=== PATIENT | male | born 1970 | race Caucasian/White ===

== ENCOUNTER 2022-05-08 06:11 | Inpatient (IN) ==
--- NOTE | 2022-04-22 09:19 | PAT Medication Instructions ---
Medication Instructions Date of Service April 22, 2022 Home Medications gabapentin 300 mg capsule 300 mg PO TID ibuprofen 800 mg tablet 800 mg PO BID ASK your surgeon for instructions ibuprofen 800 mg tablet 800 mg PO BID Take morning of surgery With a small sip of water, OTHERWISE NOTHING TO EAT OR DRINK AFTER MIDNIGHT: gabapentin 300 mg capsule 300 mg PO TID Take evening before surgery gabapentin 300 mg capsule 300 mg PO TID Other Notes If you have any questions please call us at [phone] or [phone] or [phone] or [phone]
--- NOTE | 2022-04-24 13:23 | Anesthesiology Consultation ---
Date of Service April 24, 2022 Assessment & Plan (1) Encounter for pre-operative examination: - COVID screening: Per assessment on 04/24: No known COVID-19 positive contacts or current COVID-19 related symptoms. Travel screen negative. Patient vaccinated. Surgeon arranging preop COVID testing. Awaiting results. - PCP office visit (04/03/22): "due to hx DVT/PE he will need post op DVT ppx.. recommend Eliquis 2.5 mg twice daily x 28 days with first dose POD #1 (24 hours later).. pat can be considered low risk for outpatient spine surgery on 05/08/2022 based on [facility] perioperative risk assessment." Chart Review Chart Review: Acceptable Risk for Surgery and Patient seen in Pre Admission Testing Teaching & Discussion Pre-Anesthesia Teaching/Discussion Notes: Instructed NPO after midnight before surgery,except medications with 15 cc of water. Medication instructions provided according to the PAT guidelines. History Surgery Operation Date: 05/08/22 07:45 Proposed Procedures p L4-S1 Decompression and Fusion, Spinal Cord Monitoring - Ramiro Houston DO Height/Weight Height: 5 ft 8 in Weight: 75.3 kg Allergies Allergy/AdvReac Type Severity Reaction Status Date / Time No Known Allergies Allergy Verified 04/21/22 09:48 Medications Home Medications Medication Instructions Recorded Confirmed Last Taken gabapentin 300 mg capsule 300 mg PO TID 04/21/22 04/21/22 Unknown ibuprofen 800 mg tablet 800 mg PO BID 04/21/22 04/21/22 Unknown Past Medical History Medical History Diverticular disease History of COVID-19 Dx 02/2021 > fever, fatigue, body aches, chills, brain fog, loss of taste/smell, + PE > resolved, no current issues History of kidney stones History of pulmonary embolism 02/2021 (while hospitalized with Covid) > previously on Eliquis HLD (hyperlipidemia) no meds Spinal stenosis Exercise / Class Metabolic Activity II 4-5 Yardwork/Stairs/Walk up hill Past Family History Family History Other No family history of adverse response to anesthesia Past Surgical History Surgical History History of colonoscopy History of esophagogastroduodenoscopy (EGD) History of removal of cyst History of wisdom tooth extraction Past Anesthesia History No Hx of Anesthesia Complications and No Family Hx of Anesthesia Complications History of PONV No Hx of PONV and No Hx of Motion Sickness Social History Smoking Status: Never smoker Do You Dip or Chew Tobacco: No Hx Alcohol Use: Yes Alcohol type: beer alcohol intake frequency: 0-2 drinks per day (1-2 beers/day) Hx Substance Use: No substance use type: does not use Review of Systems Chronic, dry cough upon awakening x years felt r/t allergies. Patient denies chest pain, shortness of breath, dyspnea on exertion, fever, chills, wheezing, palpitations. Physical Exam Vital Signs VITALS BP 151/91 P 83 TEMP 98.4 SP02 97%RA RESP 16 PHYSICAL Full cervical extension range of motion. Full TMJ range of motion. TMD 3.5 finger breaths Mallampati Score 3 Dentition: intact, root canal repair on molar Lungs: clear throughout to auscultation Cardiac: regular rate and rhythm, no murmurs noted Spine: normal Carotid arteries: negative bruit Extremities: no edema Lab Results Anesthesia Preop Results Results Anesthesia Widget: WBC 7.02 K/uL (4.8-10.8) 04/24/22 Hgb 14.9 g/dL (14.0-18.0) 04/24/22 Hct 43.3 % (42-52) 04/24/22 Plt 238 K/uL (130-400) 04/24/22 Na 141 mmol/L (136-145) 04/24/22 K 3.5 mmol/L (3.5-5.1) 04/24/22 Cl 106 mmol/L (98-107) 04/24/22 CO2 27 mmol/L (21-32) 04/24/22 BUN 10 mg/dl (6-23) 04/24/22 Creat 0.90 mg/dl (0.6-1.4) 04/24/22 Glucose Level 128 mg/dl (70-99(Fasting)) H 04/24/22 PT 10.2 Seconds (9.0-12.0) 04/24/22 PTT 28.1 Seconds (21.0-31.0) 04/24/22 INR 1.0 (0.9-1.1) 04/24/22 Urine Color Yellow 04/24/22 Urine Appearance Clear (Clear) 04/24/22 Urine pH 6.0 (4.5-7.5) 04/24/22 Urine Specific [place] 1.009 (1.000-1.030) 04/24/22 Urine Protein Negative (Negative) 04/24/22 Urine Glucose (UA) Negative (Negative) 04/24/22 Urine Ketones Negative (Negative) 04/24/22 Urine Blood Negative (Negative) 04/24/22 Urine Nitrite Negative (Negative) 04/24/22 Urine Bilirubin Negative (Negative) 04/24/22 Urine Urobilinogen Negative (Negative) 04/24/22 Urine Leukocyte Esterase Negative (Negative) 04/24/22 Blood Type O Negative 04/24/22 Antibody Screen NEGATIVE 04/24/22 Testing Electrocardiogram Date: 04/24/22 NSR at 72bpm. iRBBB. Chest X-Ray Date: 04/24/22 Findings: + NAD Echocardiogram Date: 12/05/21 EF 55-60%. No regional motion abnormality. Mild MV thickening. Trivial TR. Normal PAP.
[~2022-05-08 06:11] MED LIST: ACETAMINOPHEN 500 MG TAB PO SCH; CeleBREX 200 MG CAP PO SCH; GABAPENTIN 900 MG DOSE PO SCH; LR 15ML/HR IV SCH; ceFAZolin 2000MG 2,000 MG/15 ML SYR IV SCH
[2022-05-08] MEDS ORDERED: BUPIVACAINE/EPINEPHRINE 0.25% 1:200,000 30 ML VIAL ONE (06:59)
[2022-05-08] MEDS ORDERED: ceFAZolin 330 MG/ML 1 GM VIAL ONE (06:59)
[2022-05-08] MEDS ORDERED: MIDAZOLAM HCL 1 MG/ML 2ML VIAL ONE (07:16)
[2022-05-08] MEDS ORDERED: PROPOFOL IV EMULSION 10 MG/ML 20 ML VIAL IV ONE (07:16)
[2022-05-08] MEDS ORDERED: LIDOCAINE 2% 2 ML VIAL/AMP(20MG/ML) INFIL ONE (07:16)
[2022-05-08] MEDS ORDERED: ROCURONIUM BROMIDE 10 MG/ML 5 ML VIAL IV ONE (07:16)
[2022-05-08] MEDS ORDERED: fentaNYL citrate 100 MCG/2 ML VIAL ONE (07:16)
[2022-05-08] MEDS ORDERED: ATROPINE SULFATE 0.1 MG/ML 10ML SYR IV PRN (07:20)
[2022-05-08] MEDS ORDERED: ONDANSETRON INJ 2 MG/ML 2 ML VIAL IV PRN ×2 (07:20→13:31)
[2022-05-08] MEDS ORDERED: ePHEDrine sulfate 50 MG/ML AMP IV PRN (07:20)
[2022-05-08] MEDS ORDERED: ONDANSETRON INJ 2 MG/ML 2 ML VIAL ONE (07:25)
--- NOTE | 2022-05-08 07:27 | History & Physical Bridge Note ---
Date of Service May 08, 2022 History & Physical Bridge Note I have examined the patient, reviewed the History & Physical and in the interval since the performance of the History & Physical I have noted the following changes of clinical significance: no changes noted
--- NOTE | 2022-05-08 07:28 | History & Physical Report ---
Date of Service May 08, 2022 Assessment & Plan (1) Neurogenic claudication due to lumbar spinal stenosis: Plan: L4-S1 decompression and fusion History of Present Illness Chief Complaint: Back and leg pain Primary Care Provider: Deepak Norton This is a 51-year-old male who presents with chronic persistent back and leg pain after failing course of nonoperative care is here for surgical invention. Allergies Allergy/AdvReac Type Severity Reaction Status Date / Time No Known Allergies Allergy Verified 05/08/22 06:26 Home Medications Medication Instructions Recorded Confirmed Type gabapentin 300 mg capsule 300 mg PO TID 04/21/22 05/08/22 History ibuprofen 800 mg tablet 800 mg PO BID 04/21/22 05/08/22 History Past Med/Surg History Medical History Diverticular disease History of COVID-19 Dx 02/2021 > fever, fatigue, body aches, chills, brain fog, loss of taste/smell, + PE > resolved, no current issues History of kidney stones History of pulmonary embolism 02/2021 (while hospitalized with Covid) > previously on Eliquis HLD (hyperlipidemia) no meds Spinal stenosis Surgical History History of colonoscopy History of esophagogastroduodenoscopy (EGD) History of removal of cyst History of wisdom tooth extraction Family History Other No family history of adverse response to anesthesia Social History Smoking Status: Never smoker Second Hand Exposure: Yes (as a child); Do You Dip or Chew Tobacco: No; Hx Alcohol Use: Yes Alcohol type: beer Hx Substance Use: No Preferred Language: Thai Communication Ability: Effective Assistant Case Manager Required: No Beliefs That Will Affect Care: None Current Living Situation: Spouse Feels Safe at Home: Yes Safety Concerns: Feels Safe At This Time Assistive Devices: Glasses Physical Exam Physical Exam: Patient is alert and oriented Heart regular in rhythm Lungs clear Results & Data Results & Data ([facility]) Vital Signs (Past 12 Hours) Vital Signs Temp Pulse Resp BP Pulse Ox 05/08/22 06:28 36.9 C 77 20 136/94 98
[2022-05-08] MEDS ORDERED: DEXAMETHASONE SOD INJ 4 MG/ML VIAL ONE (07:31)
[2022-05-08] MEDS ORDERED: FLOSEAL HEMOSTATIC MATRIX 10ML TOP ONE (08:23)
[2022-05-08] MEDS ORDERED: GLYCOPYRROLATE 0.2 MG/ML VIAL ONE (09:24)
[2022-05-08] MEDS ORDERED: NEOSTIGMINE METHYLSULFATE 1 MG/ML 10ML VIAL ONE (09:24)
--- NOTE | 2022-05-08 09:57 | Operative Report ---
Post Operative Report Pre & Post Diagnosis Operation Date: 05/08/22 07:45 Pre-Op Diagnosis: Radiculopathy, Lumbar Region Spondylolisthesis L5-S1 Lumbar disc herniation L4-5 Post-Op Diagnosis: Same I identified the patient and participated in the time-out.: Yes Procedure Operation Date: 05/08/22 07:45 Actual Procedures #1 lumbar decompression with bilateral medial facetectomies and foraminotomies L3-4, L4-5 and L5-S1. #2 posterior spinal fusion L4-5 L5-S1. #3 placement posterior instrumentation L4-5 L5-S1. #4 interbody fusion L4 for L5 L5-S1. #5 placement of 13 x 26 mm spiral cage at L4-5 and 11 x 26 mm at L5-S1. #6 placement locally harvested morselized autograft in the posterior gutters. #7 placement of I factor combined with V toss in interbody space and posterior lateral gutters. Surgeon Ramiro Houston, Stencil Cutter Machine Jeovanny Dupree Estimated Blood Loss 150 Findings Consistent with Post-Op Diagnosis Specimens None Indications This is a 51-year-old male who presents with the above-mentioned diagnosis after failing since course of nonoperative care is here for surgical invention. Description of Procedure Patient was met with identified informed consent obtained. Patient was then taken to the operative suite underwent ablation placed in a prone position the [place] table top Wolf frame. All bony prominences well-padded eyes inspected to ensure no external pressure placed upon them. This point the lumbar spine was prepped and draped in normal sterile fashion. Sharp dissection with the assistance of Bovie cautery was performed down to and exposing the lamina and transverse processes of L4-L5 and sacral ala bilaterally. Obvious bilateral p ars defect at L5 was noted. A complete laminectomy L5 L4 and partial laminectomy L3 was performed including medial facetectomies and foraminotomies bilaterally to f address all neural compression. Discrimination L4-5 on the left was identified and the fragments were removed. Pedicle screws were then placed in L4-L5 and S1 levels bilaterally with assistance of fluoroscopy and appropriate sized rip contoured and placed. By way of entrance foraminal approach and left complete discectomy of L5-S1 was performed endplates curetted to subcortical bleeding bone and 11 x 26 mm spiral cage with I factor tapped in position. Then proceeded to L4-L5 and again by way of transforaminal approach and left pleat discectomy performed endplates curetted to subcortically bone and a 13 x 26 mm spiral cage filled I factor tapped in position. The rods then locked in final position bilaterally. The transverse processes of L 4 L5 and sacral ala burred to subcortical being bone. I factor combined with V toss and locally harvested morselized autograft was then placed in the posterior gutters. 15 round ROSEY drain inserted. The incision was then closed with 1 Vicryl the fascia 2-0 Vicryl subcutaneously and 4 Monocryl for final skin closure. Steri- Strip sterile dressings placed. Patient waken taken PACU stable condition. Please note spinal cord monitoring was utilized at the procedure no changes n oted. Lastly Jeovanny Dupree was present out the entire procedure involved the patient positioning complex portions of the surgery and fascial closure. I attest to the content of the Intraoperative Record and any orders documented therein. Any exceptions are noted below.
--- NOTE | 2022-05-08 10:01 | Fluoroscopy Report ---
FL lumbar spine 2-3V CLINICAL HISTORY: L4-S1 DECOMPRESSION AND FUSION TECHNIQUE: 2 views were obtained with the C-arm in the OR with the above procedure. Total fluoroscopy time was 33.9 seconds. Total skin dose was 24.3 mGy. Comparison: None available at the time of this dictation. FINDINGS/IMPRESSION: Intraoperative images were obtained of lumbar spine discectomy and fusion. Please correlate with intraoperative fluoroscopy and operative report. ACT 112: Negative or not required by law. Electronically signed by: Gordon Russo M.D. 05/08/2022 10:00 AM
[2022-05-08] MEDS: fentaNYL citrate 100 MCG/2 ML VIAL IV PRN ×4 (10:37→10:56)
--- NOTE | 2022-05-08 11:25 | Anesthesiology Progress Note ---
Date of Service May 08, 2022 Anesthesia Post Procedure Vital Signs Vital Signs: Temp Pulse Pulse Resp BP Pulse Ox 05/08/22 11:15 64 12 127/78 100 05/08/22 11:05 62 12 128/77 93 05/08/22 10:55 64 12 120/79 99 05/08/22 10:45 62 12 118/79 93 05/08/22 10:35 59 L 16 100/58 L 100 05/08/22 10:25 61 14 96/53 L 100 05/08/22 10:16 97.0 F L 62 16 121/83 100 05/08/22 06:28 98.4 F 77 20 136/94 98 Pain Intensity Bilateral Lower Back: Pain Intensity: 4 Transfer of Care Handoff Completed per policy Notes Mental Status: alert / awake / arousable and participated in evaluation Patient Amnestic to Procedure: Yes Nausea / Vomiting: adequately controlled Pain: adequately controlled Airway Patency, RR, SpO2: stable & adequate BP & HR: stable & adequate Hydration State: stable & adequate Anesthetic Complications: no major complications apparent and Pt Satisfied with anesthetic care
[2022-05-08] MEDS: HYDROmorphone INJ 2 MG/ML SYR/VIAL IV PRN ×2 (11:41→11:46)
[2022-05-08] MEDS ORDERED: ONDANSETRON 4 MG OD TAB PO PRN (13:31)
[2022-05-08] MEDS ORDERED: METOCLOPRAMIDE HCL INJ 5 MG/ML 2 ML VIAL IV PRN (13:31)
[2022-05-08] MEDS ORDERED: HYDROmorphone INJ 0.5 MG/0.5 ML SYR IV PRN (13:31)
[2022-05-08] MEDS ORDERED: PROMETHAZINE HCL 12.5 MG in SODIUM CHLORIDE 0.9% 50 ML IV PRN (13:31)
[2022-05-08] MEDS ORDERED: DO NOT ADMINISTER FLU VACCINE PRN (13:31)
[2022-05-08] MEDS ORDERED: hydrOXYzine HCl 25 MG TAB PO PRN (13:31)
[2022-05-08] MEDS ORDERED: LORazepam 0.5 MG in SYRINGE 0.25 ML IV PRN (13:31)
[2022-05-08] MEDS ORDERED: DO NOT ADMINISTER PNEUMOCOCCAL VACCINE PRN (13:31)
[2022-05-08] MEDS ORDERED: ACETAMINOPHEN 500 MG TAB PO PRN (13:31)
[2022-05-08] MEDS ORDERED: LORazepam 0.5 MG TAB PO PRN (13:31)
[2022-05-08] MEDS ORDERED: ACETAMINOPHEN 1,000 MG/100 ML VIAL IV PRN (13:31)
[2022-05-08] MEDS ORDERED: bisacodyL 10 MG SUPP PR PRN (13:31)
[2022-05-08] MEDS ORDERED: SOD PHOSPHATE/SOD BIPHOSPHATE ENEMA 132 ML BTL PR PRN (13:31)
[2022-05-08] MEDS ORDERED: FAMOTIDINE 20 MG TAB PO PRN (13:31)
[2022-05-08] MEDS ORDERED: ALUMINUM/MAGNESIUM SUSP 30 ML UDC PO PRN (13:31)
[2022-05-08] MEDS ORDERED: diphenhydrAMINE Capsule 25 MG CAP PO PRN (13:31)
[2022-05-08] MEDS ORDERED: MAGNESIUM HYDROXIDE SUSP 30 ML UDC PO PRN (13:31)
[2022-05-08] MEDS ORDERED: HYDROmorphone INJ 1 MG/ML SYRINGE IV PRN (13:31)
[2022-05-08] MEDS ORDERED: NALOXONE HCL 0.4 MG/1 ML VIAL/CARP IV PRN (13:31)
[2022-05-08] MEDS: LACTATED RINGER'S 1,000 ML IV SCH ×2 (16:05→22:01)
[2022-05-08] MEDS: oxyCODONE HCL IR 5 MG TAB (IMMEDIATE RELEASE) PO PRN (16:36)
[2022-05-08] MEDS: ceFAZolin 2000MG 2,000 MG/15 ML SYR IV SCH (17:41)
[2022-05-08] MEDS: traMADol HCL 50 MG TABLET PO PRN (19:55)
[2022-05-08] MEDS: GABAPENTIN 300 MG CAP PO SCH (21:09)
[2022-05-08] MEDS: DOCUSATE SODIUM/SENNA 50/8.6MG TAB PO SCH (21:09)
[2022-05-09] MEDS: ceFAZolin 2000MG 2,000 MG/15 ML SYR IV SCH (00:34)
[2022-05-09] MEDS: LACTATED RINGER'S 1,000 ML IV SCH (04:46)
[2022-05-09] MEDS: oxyCODONE HCL IR 5 MG TAB (IMMEDIATE RELEASE) PO PRN (06:08)
[2022-05-09] MEDS: POLYETHYLENE (MIRALAX) 17 GM PACK PO SCH ×4 (06:09→23:45)
[2022-05-09 07:20] LABS: Basophils # (auto) 0.01 K/uL (0-0.2); Basophils % (auto) 0.1 %; Eosinophils # (auto) 0.05 K/uL (0-0.5); Eosinophils % (auto) 0.4 %; Hematocrit (blood only) 37.6 % (42-52); Immature Granulocytes # (auto) 0.03 K/uL (0.00-0.02); Immature Granulocytes % (auto) 0.2 %; Lymphocytes # (auto) 1.93 K/uL (1.2-3.4); Lymphocytes % (auto) 13.9 %; Mean Corpuscular Hemoglobin 31.7 pg (25-34); Mean Corpuscular Hgb Conc 34.6 g/dL (32-36); Mean Corpuscular Volume 91.7 fL (80-100); Mean Platelet Volume 11.2 fL (7.4-10.4); Monocytes % (auto) 8.6 %; Neutrophils # (auto) 10.71 K/uL (1.4-6.5); Neutrophils % (auto) 76.8 %; Platelet Count 216 K/uL (130-400); RDW Coefficient of Variation 13.2 % (11.5-14.5); RDW Standard Deviation 43.8 fL (36.4-46.3); White Blood Count 13.93 K/uL (4.8-10.8)
[2022-05-09] MEDS: GABAPENTIN 300 MG CAP PO SCH ×3 (08:06→20:45)
[2022-05-09] MEDS: dexAMETHasone 6 MG in SYRINGE 0 ML IV SCH (08:06)
[2022-05-09 08:18] LABS: Anion Gap 6 (3-11); BUN Creatinine Ratio 12.6 (10-20); Blood Urea Nitrogen 12 mg/dl (6-23); Carbon Dioxide 26 mmol/L (21-32); Chloride 106 mmol/L (98-107); Est GFR (African American) 106.2 ml/min; Est GFR (Non-African American) 91.7 ml/min; Glucose 129 mg/dl (70-99(Fasting)); Sodium 138 mmol/L (136-145)
--- NOTE | 2022-05-09 09:46 | Orthopedic Progress Note ---
Date of Service May 09, 2022 Assessment & Plan (1) Neurogenic claudication due to lumbar spinal stenosis: Plan: This time initiate physical therapy monitor his ROSEY output hopefully discharge home Wednesday or Wednesday. I will place him on aspirin daily he is he has a history of blood clots secondary to COVID a year ago. Admission and Anticipated Discharge Date Admission Date: May 08, 2022 Subjective Patient back pain is controlled. Leg pain is improved. He gets occasional numbness and tingling but this is tolerable. Physical Exam Physical Exam: On exam patient is in a chair at the bedside. Skin strength testing. Appears comfortable. Results & Data ([facility]) Vital Signs (Past 12 Hours) Vital Signs Temp Pulse Resp BP Pulse Ox 05/09/22 07:48 36.6 C 70 16 108/69 100 05/09/22 03:00 36.5 C 72 16 111/68 100 05/08/22 22:24 36.6 C 80 16 120/65 96
[2022-05-09] MEDS: traMADol HCL 50 MG TABLET PO PRN ×2 (10:41→20:01)
[2022-05-09] MEDS: DOCUSATE SODIUM/SENNA 50/8.6MG TAB PO SCH (20:45)
[2022-05-10] MEDS: traMADol HCL 50 MG TABLET PO PRN (05:53)
[2022-05-10] MEDS: POLYETHYLENE (MIRALAX) 17 GM PACK PO SCH (05:54)
[2022-05-10] MEDS: dexAMETHasone 6 MG in SYRINGE 0 ML IV SCH (07:47)
[2022-05-10] MEDS: GABAPENTIN 300 MG CAP PO SCH ×3 (07:47→20:40)
[2022-05-10] MEDS: ASPIRIN 325 MG ECTAB PO SCH (07:47)
--- NOTE | 2022-05-10 09:19 | Orthopedic Progress Note ---
Date of Service May 10, 2022 Assessment & Plan (1) Neurogenic claudication due to lumbar spinal stenosis: Plan: Patient is postoperative day 2 lumbar decompression instrumented fusion. He is doing well. We will continue with physical therapy today. Maintain ROSEY drain. Continue with pain control. DVT prophylaxis is in the form of teds and SCDs. Continue with bowel regimen. Anticipate discharge home tomorrow Admission and Anticipated Discharge Date Admission Date: May 08, 2022 Ramila Aguilar is postoperative day 2 lumbar decompression instrumented fusion L4-S1. He is doing well. Had a bit more lumbar discomfort today. Leg symptoms greatly improved. He has had a bowel movement. ROSEY drain output last shift was 20 cc. Yesterday in physical therapy ambling roughly 275 feet. Review of Systems Review of Systems: All systems reviewed & are unremarkable except as noted in HPI & below Physical Exam Physical Exam: Alert and oriented x3 Sitting in a chair in no acute distress Lumbar dressing is clean dry and intact and functioning ROSEY drain Calf soft nontender bilaterally Strength is 5 5 bilateral lower extremities Results & Data ([facility]) Vital Signs (Past 12 Hours) Vital Signs Temp Pulse Resp BP Pulse Ox 05/10/22 07:07 36.6 C 73 18 124/81 100 05/09/22 22:23 36.6 C 77 18 128/79 100
[2022-05-10] MEDS: oxyCODONE HCL IR 5 MG TAB (IMMEDIATE RELEASE) PO PRN ×2 (13:30→20:40)
[2022-05-10] MEDS: DOCUSATE SODIUM/SENNA 50/8.6MG TAB PO SCH (20:40)
[2022-05-11] MEDS: ASPIRIN 325 MG ECTAB PO SCH (08:14)
[2022-05-11] MEDS: GABAPENTIN 300 MG CAP PO SCH ×2 (08:14→15:09)
[2022-05-11] MEDS: oxyCODONE HCL IR 5 MG TAB (IMMEDIATE RELEASE) PO PRN ×2 (09:50→15:10)
[2022-05-11] MEDS: dexAMETHasone 6 MG in SYRINGE 0 ML IV SCH (09:51)
--- NOTE | 2022-05-11 10:08 | Discharge Summary ---
Date of Service May 11, 2022 Admission HPI Per Admitting Provider This is a 51-year-old male who presents with chronic persistent back and leg pain after failing course of nonoperative care is here for surgical invention. Principal Diagnosis Lumbar spinal stenosis with radiculopathy Discharge Data Allergies Allergy/AdvReac Type Severity Reaction Status Date / Time No Known Allergies Allergy Verified 05/08/22 06:26 Procedures Performed Operation Date: 05/08/22 07:45 Actual Procedures p L4-S1 Decompression and Fusion, Spinal Cord Monitoring - Ramiro Houston DO Ordered Studies 05/08/22 07:45 [place] lumbar spine 2-3V Routine Hospital Course (1) Neurogenic claudication due to lumbar spinal stenosis: Patient with lumbar decompression fusion tolerated as well as taken to orthopedic for postoperative. Postop day 1 is up and ambulating progressive postop day 2 on postop day 3 ROSEY drain decreased probably. Excellent strength testing. Pain well controlled. Socially discharged home. Discharge orders and instructions from the chart for further review. Total Time Total Time Spent Total Time Spent (In Minutes): 20 minutes Discharge Plan Discharge Items Patient Disposition: Home - Self-Care Reason For Visit: Radiculopathy, Lumbar Region Discharge Diagnosis: Lumbar radiculopathy Activity: As commented below Non-emergency contact: Primary Care Provider Call non-emergency contact if: you have any medication questions Follow-up/Referrals: Deepak Norton M.D. [Primary Care Provider] - Diet: Regular Addtl Attending Provider Instructions: ACTIVITY RECOMMENDATIONS: SELF CARE INSTRUCTIONS AFTER THORACIC/LUMBAR FUSIONS 1. You may walk to your tolerance. It is good exercise for your legs and back. Expect some back and intermittent leg aches and pains. 2. You may perform "counter-top" level activities (make a sandwich, rosio with a project, etc.). 3. No bending or lifting of more than 10 pounds or back twisting of any nature (roll like a log when turning in bed). 4. You may ride in a car for 20-30 minutes at a time. No driving until after your first visit with your doctor. 5. Frequent changes of position and restricting sitting to 30 minutes at a time will help limit the amount of back spasms and stiffness you may experience. 6. You may discontinue the use of ambulatory aids (cane, crutches, etc.) once your strength and confidence allow. 7. You may fire alarm installer the shower and let water strike your incision when you arrive home at least once daily. Do not take a tub bath, sit in a hot tub or go into a swimming pool until after your first recheck in the office. SPECIAL CARE INSTRUCTIONS: VERY IMPORTANT TO READ AND REVIEW A. Your surgical incision has been closed with a cosmetic suture under the skin that will dissolve in about 6 weeks. In 14 days, you can use a pair of clean scissors and cut the suture that is left outside of the skin at the ends of your incision. 1. The small skin tapes can be removed 7 days after surgery if they have not fallen off by that point. 2. You may keep the wound open to air as much as possible to promote healing after post-op day number 5 unless told otherwise by your doctor. 3. If you think the wound looks like it is becoming infected (redness or worsening drainage) and/or you are experiencing fever, chill or worsening back pain and muscle spasms, contact the office so that we may evaluate you as soon as possible. B. Complications are uncommon, but please contact us if you have any signs or symptoms of: 1. wound infection (fever higher than 102.5 degrees F, redness, separation of wound, drainage, or increasing pain from the incision) 2. blood clots in legs (pain, swelling, redness and warmth in legs) 3. urinary tract infection (fever higher than 102.5 degrees F, burning upon urination or increased frequency of urination) 4. nerve problems (inability to walk on your toes or heels, numbness, loss of bowel or bladder control) 5. any other symptoms that concern you C. Please call the office at if you have any concerns or questio ns about your operation or recovery. D. No smoking! Smoking drastically decreases the chance of a solid fusion. E. Do not take any anti-inflammatory medications (Indocin, Advil, Motrin, Aspirin, Naprosyn, etc.) as these may inhibit the chance of a solid fusion. Tylenol is okay to take for pain. MANAGING PAIN AFTER SPINAL SURGERY 1. Narcotic medication is intended for short-term use and will be provided for surgical pain. Surgical pain usually lasts for a period of 4-6 weeks. Narcotic medication includes Percocet, Vicodin, Darvocet, Tylenol #3 or Lortab. 2. Longer-term pain is more appropriately treated with non-narcotic medication such as Tylenol ES. 3. Muscle spasm is not appropriately treated with narcotics. Muscle relaxers such as Soma, Flexeril or Skelaxin can be used along with Tylenol ES. 4. Remember that we all live with some "aches and pains". This is not unusual or uncommon after an injury or as we get older. a. Back pain is expected and may include muscle spasms for 4 to 6 weeks after surgery. The pain should gradually improve. If the pain worsens for no apparent reason, please contact the office. b. Intermittent leg pain may also be experienced and should not be concerned about unless it worsens for no apparent reason. If so, please contact the office. 5. We will provide appropriate medication within the normal guidelines of their prescribed use. We will also be very cautious and aware of potential abuse and extended duration of patients' medication needs. a. Pain medications are for your comfort and to assist with sleep and rest so that the tissue can heal. They are not provided in order to return to normal activity and should not be used through the day. To do so or worsening pain at night can result from ongoing tissue damage and development of tolerance to the prescribed medicine. 6. Please allow 2-3 days to process refills. Prescriptions will not be mailed but must be picked up at the office. FOLLOW UP VISIT: Keep your scheduled follow-up appointment. Any questions, please call the office at . Pending Studies at Discharge: No Stand-Alone Forms: [facility], Smoking Cessation Medications and MO Order Prescriptions: New tramadol 50 mg tablet 50 mg PO Q6H PRN (Reason: pain, moderate) Qty: 30 RF: 0 oxycodone 5 mg tablet 5 mg PO Q6H PRN (Reason: pain, severe) Qty: 30 RF: 0 Continued gabapentin 300 mg Capsule 300 mg PO TID RF: 0 Discontinued ibuprofen 800 mg Tablet 800 mg PO BID RF: 0 Discharge Orders: Discharge Order (Routine); Ordered 05/11/22 Ordered By: Ramiro Houston Admission Data Admit Date/Time: 05/08/22 09:59 Attending Provider: Ramiro Houston Admit Provider: Ramiro Houston Primary Care Provider: Deepak Norton
== END 2022-05-11 15:23 | disposition home or self-care (01) | DRG 455 ==
LOC: ASU 06:11 → 3E 09:59